=== PATIENT | female | born 1950 | race Asian ===

== ENCOUNTER 2025-01-20 09:03 | Emergency (ER) | payer BC, MEDICAID ==
[~2025-01-20] VITALS: Ht 152.4 cm; Wt 60.0 kg
[~2025-01-20 09:03] MED LIST: CHLO250T9 PO; HYDR-3136 PO; METO50TA7 PO
--- NOTE | 2025-01-20 10:13 | Physician Documentation ---
History of Present Illness ~ Chief Complaint: Leg Pain Stated Complaint: L FOOT PAIN Time Seen by MD: 09:48 HPI This 74-year-old female presents to the ED with a complaint of itching hives on her back and left lower extremity pain swelling and redness. States this has been going on for a proximally one month. She says she went to the urgent care and received Bactrim for her infection in her leg. Said that it went away and then came back worse. Denies any fevers or nausea vomiting but reports ongoing headaches. He also had her hives return Day of Onset: Jan 20, 2025 Medication Reconciliation Allergies: Coded Allergies: No Known Allergies (Unverified , 10/27/12) Scheduled Chlorothiazide (Chlorothiazide), PO DAILY, (Reported) Doxycycline Monohydrate (Doxycycline Monohydrate), 1 CAP PO Q12H Hydralazine Hcl* (Apresoline*), 10 MG PO QID, (Reported) Metoprolol Succinate* (Toprol Xl*), 50 MG PO DAILY, (Reported) Past Medical History Past Medical History: No Pertinent History Review of Systems All Other Systems at this time: Reviewed and Negative ROS As stated above in the HPI, otherwise all systems are reviewed and negative. Physical Exam Vital Signs: Temperature: 97.7, Source: Oral, Heart Rate: 95, Respiratory Rate: 18, BP: 164/80, Pulse Oximetry: 98, Weight: 60.000 Physical Exam General: Alert, no apparent distress. Respiratory: Lungs clear, no respiratory distress. Cardiovascular: Regular rate and rhythm, no murmurs. Gastrointestinal: Soft, nontender, nondistended. Bowels sounds present. Extremities: Left lower leg circumferentially swollen with erythema in the distal aspect of her left calf, negative Homans sign Neurologic: Oriented x4. Psychiatric: Normal mood and affect. Skin: No edema, no ecchymosis. Hives on the posterior trunk and back Progress Results/Orders Results/Orders Orders - ROB WILLSON G[employer]PE[employer] WORKER Culture Blood (01/20/25 10:13) Chest,Single View (01/20/25 11:27) Monitor (01/20/25 10:13) Saline Lock (01/20/25 10:13) Vl Venous (01/20/25 10:13) Completed Orders - ROB WILLSON [employer] WORK[employer] Cbc/Diff (01/20/25 10:13) Chest,Single View (01/20/25 11:27) Procalcitonin (01/20/25 10:13) BMP (01/20/25 10:13) Lacticsepsis (01/20/25 10:13) Vl Venous (01/20/25 10:13) Diphenhydramine Capsule (Benadryl Capsul (01/20/25 10:15) Dexamethasone Inj (Decadron 10mg/Ml Inj) (01/20/25 10:14) Vital Signs 01/20/25 01/20/25 09:08 11:56 Temp 97.7 98.6 Pulse 95 84 Resp 18 16 B/P (MAP) 164/80 132/78 Pulse Ox 98 99 Laboratory Tests Test 01/20/25 10:47 01/20/25 10:52 Lactic Acid Level 1.3 White Blood Count 5.0 Red Blood Count 4.29 Hemoglobin 10.9 L Hematocrit 34.1 L Mean Corpuscular Volume 79.4 Mean Corpuscular Hemoglobin 25.4 L Mean Corpuscular Hemoglobin Concent 32.0 L Red Cell Distribution Width 21.6 H Platelet Count 255 Mean Platelet Volume 6.8 L Neutrophils (%) (Auto) 61.6 Lymphocytes (%) (Auto) 20.3 L Monocytes (%) (Auto) 12.5 H Eosinophils (%) (Auto) 5.0 Basophils (%) (Auto) 0.6 Neutrophils # (Auto) 3.1 Lymphocytes # (Auto) 1.0 L Monocytes # (Auto) 0.6 Eosinophils # (Auto) 0.2 Basophils # (Auto) 0.0 CBC Comment Platelet Estimate Normal Red Blood Cell Morphology Perf Hypochromasia 1+ Poikilocytosis Basophilic Stippling Anisocytosis 3+ Microcytosis 1+ Sodium Level 141 Potassium Level 3.7 Chloride Level 107 Carbon Dioxide Level 26.6 Anion Gap 7 L Blood Urea Nitrogen 12 Creatinine 1.02 H Estimated GFR/1.73 m2 53 BUN/Creatinine Ratio 11.8 Glucose Level 125 H Calcium Level 9.3 Albumin 3.7 Procalcitonin < 0.05 Chemistry Comments Microbiology Date/Time Source Procedure Growth Status 01/20/25 10:52 Blood Arm Right Blood Culture - Preliminary NEGATIVE (LESS THAN 24 HOURS) Resulted Medical Decision Making Additional information obtaine: N/A Findings 74-year-old female did not show any signs of sepsis based on her laboratory values. However she has recently been on oral antibiotics which correlates with her current lab values. i do suspect worsening cellulitis. Her vascular ultrasound was negative for any DVT. I offered hospitalist admission however the patient adamantly refused. I am going to start her on doxycycline and advise her of a close follow up for any worsening conditions. Per my interpretation I did not appreciate any signs of pneumonia from her chest x-ray General Diff Dx:Considerations: Include: Abrasion, Contusion, Fracture, Hematoma, Laceration, Malunion, Neurovascular injury, Open fracture, Sprain, Ulcer, Other Knee Diff Dx:Considerations: Unlikely: Abrasion, Arthritis, Contusion, DJD, Fracture-femur, Fracture-fibula, Fracture-patella, Fracture-tibia, Gout, Hematoma, Laceration, Meniscus injury, Neurovascular injury, Open fracture, Rheumatoid arthritis, Septic, Sprain, Sprain-MCL, Sprain-LCL, Sprain-ACL, Sprain-PCL, Other Ankle Diff Dx:Considerations: Unlikely: Abrasion, Arthritis, Contusion, DJD, Fracture-metatarsal, Fracture-fibula, Fracture-tarsal, Fracture-tibia, Gout, Hematoma, Laceration, Malunion, Neurovascular injury, Nonunion, Open fracture, Osteomyelitis, Rheumatoid arthritis, Sprain, Septic, Ulcer, Other Foot Diff Dx:Considerations: Unlikely: Abrasion, Arthritis, Cellulitis, Contusion, Dislocation, DJD, Fracture-metatarsal, Fracture-phalynx, Fracture- tarsal, Gout, Hematoma, Ingrown toenail, Laceration, Malunion, Neurovascular injury, Open fracture, Paronychia, Puncture, Rheumatoid, Sprain, Septic, Subungual hematoma, Ulcer, Other Toe Diff Dx:Considerations: Unlikely: Abrasion, Cellulitis, Contusion, Dislocation, Felon, Fracture, Hematoma, Laceration, Neurovascular injury, Open fracture, Paronychia, Subungual hematoma, Other Departure Disposition: 01 HOME / SELF CARE / HOMELESS Impression: Primary Impression: Leg swelling Additional Impressions: Cellulitis Hives Discharge Instructions: Cellulitis, Adult Referrals: NO PRIMARY CARE PROVIDER (PCP) Prescriptions Doxycycline Monohydrate (Doxycycline Monohydrate) 100 Mg Capsule 1 CAP PO Q12H for 10 Days, #20 CAP Prov: ROB WILLSON [employer] WORKER 01/20/25 Education Educated: Patient Educated regarding: diagnosis Signature Scribe Signature: j Attestation: Scribed for Rob Willson Grid Molder by Rob Ventura NP . 01/20/25 18:52 ROB WILLSON NP Jan 20, 2025 10:13
[2025-01-20] MEDS: dexamethasone sod phosphate 10mg/ml inj PO STA (10:27)
[2025-01-20 11:07] LABS: MEAN PLATELET VOLUME 6.8 FL (7.4-10.4); RED CELL DISTRIBUTION WIDTH 21.6 % (11.5-14.5)
[2025-01-20 11:16] LABS: CREATININE 1.02 MG/DL (0.40-0.90); TOTAL CARBON DIOXIDE 26.6 MMOL/L (24-32); eCRCL 34 ML/MIN; eGFR 53 ML/MIN
[2025-01-20 11:25] LABS: PLATELET ESTIMATE NORMAL
--- NOTE | 2025-01-20 11:38 | RADIOLOGY REPORT ---
EXAM: DI CHEST,SINGLE VIEW HISTORY: infection COMPARISON: None TECHNIQUE: PA upright view of the chest was performed. FINDINGS: No pneumothorax, pulmonary edema, or consolidative infiltrates. The heart is enlarged. There are postoperative changes of median sternotomy, aortic valve replacement, mitral valve replacement, and left atrial appendage closure. There is thoracic dextroscoliosis. IMPRESSION: Cardiomegaly and postoperative changes of the heart. No acute intrathoracic process is otherwise identified here.
[2025-01-20] MEDS ORDERED: DOXY-347 PO (11:39)
[2025-01-20 11:56] VITALS: BP 132/78; PULSE 84; RESP 16; TEMP 98.6; O2SAT 99
--- NOTE | 2025-01-20 11:59 | VASCULAR REPORT ---
Technique: Real-time ultrasound imaging, with color Doppler and compression of the left common femoral vein, femoral vein, greater saphenous vein, and popliteal vein. Indication: Pain/swelling Comparison: None Findings: There is normal compressibility and flow augmentation in all of the imaged deep veins. There are no filling defects. There is left lower extremity soft tissue edema. Impression: No evidence of DVT in the left lower extremity
== END 2025-01-20 11:58 | disposition home or self-care (01) ==
LOC: ER 09:04
DX: L03.116 Cellulitis of left lower limb (principal); M79.89 Other specified soft tissue disorders; L50.9 Urticaria, unspecified; Z79.899 Other long term (current) drug therapy
CPT/HCPCS: 36415; 71045; 80048; 83605; 84145; 85008; 85025; 87040; 93971; 99284; J1100; Q0163